=== PATIENT | male | born 1960 | race Hispanic/Latino ===

== ENCOUNTER 2023-07-05 15:46 | Inpatient (IN) | payer OTHER ==
[~2023-07-05] VITALS: Ht 165.1 cm; Wt 93.0 kg
[~2023-07-05 15:46] MED LIST: ALEVE PO; ANDROGEL TOP; CIALIS5 MG PO; CINNAMON PO; FISH OIL PO; FLONASE16 GM; JANUMET 50-1,01 EACH PO; LOSARTAN POTASS25 MG PO; MULTIVITAMINS PO
[2023-07-05 16:45] LABS: BASOPHILS % 0.2 % (0.0-1.0); EOSINOPHILS # (AUTO) 0.1 (0.0-0.4); EOSINOPHILS % 0.5 % (0.0-6.0); HEMATOCRIT 44.3 % (38.2-49.6); HEMOGLOBIN 15.6 g/dL (14.0-18.0); LYMPHOCYTES # (AUTO) 0.9 (1.0-3.2); LYMPHOCYTES % 8.6 % (18.0-39.1); MEAN CORPUSCULAR HEMOGLOBIN 29.4 pg (28-32); MEAN CORPUSCULAR HGB CONC 35.2 g/dL (31-35); MEAN CORPUSCULAR VOLUME 83.6 fL (81-99); MONOCYTES # (AUTO) 0.7 (0.2-0.8); MONOCYTES % 6.9 % (4.4-11.3); NEUTROPHILS # (AUTO) 8.6 (2.1-6.9); NEUTROPHILS % 83.5 % (38.7-80.0); PLATELET COUNT 179 x10e3/uL (140-360); RED CELL DISTRIBUTION WIDTH 13.5 % (11.7-14.4); WHITE BLOOD COUNT 10.26 x10e3/uL (4.8-10.8)
[2023-07-05 16:48] LABS: INR 0.97; PROTHROMBIN TIME 13.6 seconds (11.9-14.5)
[2023-07-05 16:49] LABS: PARTIAL THROMBOPLASTIN TIME 36.8 seconds (23.8-35.5)
[2023-07-05 16:58] LABS: ALBUMIN 4.4 g/dL (3.5-5.0); ALBUMIN/GLOBULIN RATIO 1.5 (0.8-2.0); ANION GAP 16.6 mmol/L (8-16); BILIRUBIN,TOTAL 1.1 mg/dL (0.2-1.2); CALCIUM 9.1 mg/dL (8.4-10.2); CREATININE, SERUM 0.75 mg/dL (0.72-1.25); MAGNESIUM 1.7 MG/DL (1.3-2.1); POTASSIUM 3.6 mmol/L (3.5-5.1); TOTAL PROTEIN 7.3 g/dL (6.5-8.1)
[2023-07-05 17:36] LABS: TROPONIN I 0.308 ng/mL (0-0.300)
[2023-07-05] MEDS ORDERED: ASPIRIN 81 MG CHEW TAB ONE ×2 (17:44→18:27)
[2023-07-05] MEDS: ASPIRIN 81 MG CHEW TAB PO ONE (17:45)
[2023-07-05] MEDS ORDERED: ONDANSETRON HCL INJ 2MG/ML 2ML 2 MG/ML VIAL IV PRN (18:00)
[2023-07-05] MEDS ORDERED: Morphine 2mg Syringe 2 MG/ML SYR IV PRN (18:00)
[2023-07-05] MEDS ORDERED: Morphine 2mg Syringe 2 MG/ML SYR ONE (18:25)
[2023-07-05] MEDS ORDERED: SODIUM CHLORIDE 0.9% 1000ML 1,000 ML ONE (18:27)
[2023-07-05] MEDS ORDERED: ENOXAPARIN SODIUM INJ 100 MG/ML SYR SC ONE (18:27)
[2023-07-05] MEDS ORDERED: METOPROLOL TARTRATE 25 MG TAB ONE (18:27)
[2023-07-05] MEDS ORDERED: CLOPIDOGREL BISULFATE 75 MG TAB ONE (18:27)
[2023-07-05] MEDS ORDERED: ONDANSETRON HCL INJ 2MG/ML 2ML 2 MG/ML VIAL ONE (18:27)
[2023-07-05] MEDS ORDERED: FAMOTIDINE 20 MG/2 ML VIAL IV ONE (18:28)
[2023-07-05] MEDS: METOPROLOL TARTRATE 25 MG TAB PO ONE (18:36)
[2023-07-05] MEDS: CLOPIDOGREL BISULFATE 75 MG TAB PO ONE (18:36)
[2023-07-05] MEDS: ASPIRIN 81 MG CHEW TAB PO STA (18:36)
[2023-07-05] MEDS: FAMOTIDINE 20 MG/2 ML VIAL IV SCH (18:37)
[2023-07-05] MEDS: ONDANSETRON HCL INJ 2MG/ML 2ML 2 MG/ML VIAL IV STA (18:37)
[2023-07-05] MEDS: ENOXAPARIN SODIUM INJ 100 MG/ML SYR SC ONE (18:37)
[2023-07-05] MEDS: SODIUM CHLORIDE 0.9% 1000ML 1,000 ML IV SCH (18:37)
[2023-07-05] MEDS: Morphine 2mg Syringe 2 MG/ML SYR IV STA (18:37)
[2023-07-05 19:07] VITALS: PULSE 95; RESP 16; O2SAT 100
[2023-07-05] MEDS ORDERED: SODIUM CHLORIDE 0.9% 1000ML 1,000 ML IV SCH (19:45)
[2023-07-05 20:45] VITALS: BP 120/83; PULSE 84; RESP 15; TEMP 100.3; O2SAT 98
[2023-07-05 21:01] VITALS: BP 120/83; PULSE 84; RESP 15; TEMP 100.3; O2SAT 98
[2023-07-05] MEDS: CRESTOR 10MG PO SCH (22:01)
[2023-07-05] MEDS: METOPROLOL TARTRATE 25 MG TAB PO SCH (22:02)
[2023-07-05] MEDS ORDERED: DEXTROSE 50% SYRINGE 50 ML IV PRN (22:45)
[2023-07-05] MEDS ORDERED: FLUTICASONE PROPIONATE NASAL SPRAY NS SCH (22:45)
[2023-07-05 23:30] VITALS: BP 102/72; PULSE 78; RESP 18; TEMP 98.6; O2SAT 98
[2023-07-05 23:45] VITALS: BP 99/67; PULSE 75; RESP 19; TEMP 98.7; O2SAT 99
[2023-07-06] VITALS (15 sets, daily range): BP systolic 91–110; BP diastolic 54–74; PULSE 62–78; RESP 13–22; TEMP 98–98.7; O2SAT 96–100
[2023-07-06] LABS: TROPONIN I 0.295 ng/mL (0-0.300)
[2023-07-06 06:18] LABS: BASOPHILS % 0.6 % (0.0-1.0); EOSINOPHILS # (AUTO) 0.1 (0.0-0.4); EOSINOPHILS % 1.7 % (0.0-6.0); HEMOGLOBIN 15.2 g/dL (14.0-18.0); LYMPHOCYTES # (AUTO) 1.2 (1.0-3.2); LYMPHOCYTES % 23.2 % (18.0-39.1); MEAN CORPUSCULAR HEMOGLOBIN 29.6 pg (28-32); MEAN CORPUSCULAR HGB CONC 34.5 g/dL (31-35); MEAN CORPUSCULAR VOLUME 85.8 fL (81-99); MONOCYTES # (AUTO) 0.7 (0.2-0.8); MONOCYTES % 12.7 % (4.4-11.3); NEUTROPHILS # (AUTO) 3.3 (2.1-6.9); NEUTROPHILS % 61.2 % (38.7-80.0); PLATELET COUNT 180 x10e3/uL (140-360); RED BLOOD COUNT 5.13 x10e6/uL (4.3-5.7); RED CELL DISTRIBUTION WIDTH 13.8 % (11.7-14.4); WHITE BLOOD COUNT 5.34 x10e3/uL (4.8-10.8)
[2023-07-06 06:38] LABS: ALBUMIN 3.8 g/dL (3.5-5.0); ALBUMIN/GLOBULIN RATIO 1.3 (0.8-2.0); ANION GAP 14.1 mmol/L (8-16); BILIRUBIN,TOTAL 1.3 mg/dL (0.2-1.2); CHOL/HDL RATIO 2.8 (3.9-4.7); CREATININE, SERUM 0.81 mg/dL (0.72-1.25); POTASSIUM 4.1 mmol/L (3.5-5.1); TOTAL PROTEIN 6.7 g/dL (6.5-8.1)
[2023-07-06 07:13] LABS: THYROID STIMULATING HORMONE 2.751 uIU/mL (0.350-4.940); TROPONIN I 0.205 ng/mL (0-0.300)
[2023-07-06] MEDS: INSULIN REGULAR, HUMAN 100 UNIT/1 ML SQ SCH (07:14)
[2023-07-06] MEDS: ICOSAPENT ETHYL 1 GM CAPSULE PO SCH (08:00)
[2023-07-06] MEDS: LOSARTAN POTASSIUM 25 MG TAB PO SCH (08:07)
[2023-07-06] MEDS: CLOPIDOGREL BISULFATE 75 MG TAB PO SCH (08:07)
[2023-07-06] MEDS: ASPIRIN 81 MG ENTERIC COATED PO SCH (08:08)
[2023-07-06] MEDS ORDERED: LIDOCAINE HCL 2% LOCAL 20 ML VIAL ONE ×2 (08:38→13:20)
[2023-07-06] MEDS ORDERED: IOPAMIDOL 370 MG/ML 100 ML INFUS..BTL INJ ONE ×3 (08:38→13:20)
[2023-07-06] MEDS ORDERED: VERAPAMIL HCL 2.5 MG/ML 2 ML VIAL ONE ×2 (08:38→13:20)
[2023-07-06] MEDS ORDERED: HEPARIN SOD (PORCINE) 1000 UNIT/ML 30ML ONE ×2 (08:38→13:20)
[2023-07-06] MEDS ORDERED: HEPARIN SOD/SOD CHLORIDE 2,000 ML ONE (08:38)
[2023-07-06] MEDS ORDERED: NITROGLYCERIN/D5W 200 MCG/ML 250 ML ONE (08:39)
[2023-07-06] MEDS ORDERED: SODIUM CHLORIDE 0.9% 1000ML 1,000 ML ONE (08:39)
[2023-07-06] MEDS ORDERED: MIDAZOLAM HCL 2 MG/2 ML VIAL ONE ×3 (08:41→13:20)
[2023-07-06] MEDS ORDERED: FENTANYL CITRATE/PF 100MCG/2 ML INJ ONE ×2 (08:41→13:20)
[2023-07-06] MEDS ORDERED: BIVALRIUDIN 250 MG/VIAL VIAL IV ONE ×2 (09:16→13:20)
[2023-07-06] MEDS ORDERED: PRASUGREL 10 MG TAB ONE ×2 (10:02→13:20)
[2023-07-06] MEDS: SODIUM CHLORIDE 0.9% 1000ML 1,000 ML IV SCH (10:48)
[2023-07-06] MEDS ORDERED: HEPARIN ONE (13:20)
[2023-07-06] MEDS ORDERED: Sodium Chloride 0.9% 50ML Bag ONE (13:20)
[2023-07-06] MEDS ORDERED: SODIUM CHLORIDE 0.9% 1000 ML BAG ONE ×3 (13:20→14:24)
[2023-07-06] MEDS ORDERED: NITROGLYCERIN/D5W 200 MCG/ML 50 MG/250 ML BTL ONE (13:20)
[2023-07-06] MEDS ORDERED: SODIUM CHLORIDE ONE (13:20)
[2023-07-06] MEDS ORDERED: METOPROLOL TARTRATE 25 MG TAB ONE ×4 (13:53→21:36)
[2023-07-06] MEDS ORDERED: ONDANSETRON HCL INJ 2MG/ML 2ML 2 MG/ML VIAL ONE (13:53)
[2023-07-06] MEDS ORDERED: FAMOTIDINE 20 MG/2 ML VIAL IV ONE ×4 (13:53→17:12)
[2023-07-06] MEDS ORDERED: Morphine 2mg Syringe 2 MG/ML SYR ONE (13:53)
[2023-07-06] MEDS ORDERED: ENOXAPARIN SODIUM INJ 100 MG/ML SYR SC ONE (13:53)
[2023-07-06] MEDS ORDERED: CLOPIDOGREL BISULFATE 75 MG TAB ONE ×2 (13:53→14:24)
[2023-07-06] MEDS ORDERED: ASPIRIN 81 MG CHEW TAB ONE (13:53)
[2023-07-06] MEDS ORDERED: CRESTOR 10MG PO ONE ×3 (14:24→21:36)
[2023-07-06] MEDS ORDERED: LOSARTAN POTASSIUM 25 MG TAB ONE (14:24)
[2023-07-06] MEDS ORDERED: ASPIRIN 81 MG ENTERIC COATED PO ONE (14:24)
[2023-07-06] MEDS ORDERED: ICOSAPENT ETHYL 1 GM CAPSULE PO ONE ×4 (17:00→17:39)
[2023-07-07] VITALS (11 sets, daily range): BP systolic 94–131; BP diastolic 56–89; PULSE 62–79; RESP 11–21; TEMP 98.2–98.5; O2SAT 96–100
[2023-07-07] MEDS ORDERED: SODIUM CHLORIDE 0.9% 1000ML 1,000 ML ONE (02:57)
[2023-07-07] MEDS: NITROGLYCERIN 0.4 MG SUBL SL PRN (03:59)
[2023-07-07] MEDS ORDERED: SODIUM CHLORIDE 0.9% 1000 ML BAG ONE (04:00)
[2023-07-07] MEDS ORDERED: ICOSAPENT ETHYL 1 GM CAPSULE PO ONE ×4 (04:00→08:38)
[2023-07-07] MEDS ORDERED: NITROGLYCERIN 0.4 MG SUBL ONE ×2 (04:00)
[2023-07-07] MEDS ORDERED: PRASUGREL 10 MG TAB ONE ×2 (04:00→10:00)
[2023-07-07] MEDS ORDERED: FAMOTIDINE 20 MG/2 ML VIAL IV ONE ×2 (04:00→06:07)
[2023-07-07] MEDS ORDERED: METOPROLOL TARTRATE 25 MG TAB ONE ×3 (04:00→09:59)
[2023-07-07] MEDS ORDERED: ASPIRIN 81 MG ENTERIC COATED PO ONE ×2 (04:00→09:59)
[2023-07-07 06:33] LABS: BASOPHILS % 0.3 % (0.0-1.0); EOSINOPHILS # (AUTO) 0.1 (0.0-0.4); EOSINOPHILS % 1.8 % (0.0-6.0); HEMATOCRIT 38.9 % (38.2-49.6); HEMOGLOBIN 12.7 g/dL (14.0-18.0); LYMPHOCYTES # (AUTO) 1.4 (1.0-3.2); LYMPHOCYTES % 19.5 % (18.0-39.1); MEAN CORPUSCULAR HGB CONC 32.6 g/dL (31-35); MEAN CORPUSCULAR VOLUME 88.8 fL (81-99); MONOCYTES # (AUTO) 1.1 (0.2-0.8); MONOCYTES % 14.6 % (4.4-11.3); NEUTROPHILS # (AUTO) 4.6 (2.1-6.9); NEUTROPHILS % 63.4 % (38.7-80.0); PLATELET COUNT 150 x10e3/uL (140-360); RED BLOOD COUNT 4.38 x10e6/uL (4.3-5.7); RED CELL DISTRIBUTION WIDTH 13.5 % (11.7-14.4); WHITE BLOOD COUNT 7.18 x10e3/uL (4.8-10.8)
[2023-07-07 07:07] LABS: ANION GAP 12.8 mmol/L (8-16); CALCIUM 8.2 mg/dL (8.4-10.2); CREATININE, SERUM 0.65 mg/dL (0.72-1.25); POTASSIUM 3.8 mmol/L (3.5-5.1)
[2023-07-07] MEDS: PRASUGREL 10 MG TAB PO SCH (09:59)
[2023-07-07] MEDS ORDERED: ASPIRIN EC81 MG PO (10:35)
[2023-07-07] MEDS ORDERED: ATORVASTATIN CA20 MG PO (10:35)
[2023-07-07] MEDS ORDERED: EFFIENT10 MG PO (10:35)
[2023-07-07] MEDS ORDERED: LOPRESSOR25 MG PO (10:35)
[2023-07-08] MEDS ORDERED: LEVALBUTEROL HCL SOLN NEBU 0.63 MG/3 ML NEB ONE (15:24)
== END 2023-07-07 12:00 | disposition home or self-care (01) | DRG 322 ==
LOC: ER 16:24 → ERHOLD 18:05 → ICU 19:40
PROVIDERS: ADMIT Internal Medicine; ATTEND Internal Medicine
PROC: 027034Z Dilation of Coronary Artery, One Artery with Drug-eluting Intraluminal Device, Percutaneous Approach (ICD-10-PCS; principal; 2023-07-06)
PROC: 02703DZ Dilation of Coronary Artery, One Artery with Intraluminal Device, Percutaneous Approach (ICD-10-PCS; 2023-07-06)
PROC: 0270346 Dilation of Coronary Artery, One Artery, Bifurcation, with Drug-eluting Intraluminal Device, Percutaneous Approach (ICD-10-PCS; 2023-07-06)
PROC: 4A023N7 Measurement of Cardiac Sampling and Pressure, Left Heart, Percutaneous Approach (ICD-10-PCS; 2023-07-06)
PROC: B2151ZZ Fluoroscopy of Left Heart using Low Osmolar Contrast (ICD-10-PCS; 2023-07-06)
PROC: B2111ZZ Fluoroscopy of Multiple Coronary Arteries using Low Osmolar Contrast (ICD-10-PCS; 2023-07-06)
DX: I21.4 Non-ST elevation (NSTEMI) myocardial infarction (principal); I10 Essential (primary) hypertension; E11.9 Type 2 diabetes mellitus without complications; E78.00 Pure hypercholesterolemia, unspecified; G47.30 Sleep apnea, unspecified; Z99.81 Dependence on supplemental oxygen; Z79.82 Long term (current) use of aspirin; Z79.85 Long-term (current) use of injectable non-insulin antidiabetic drugs; Z79.84 Long term (current) use of oral hypoglycemic drugs; Z79.899 Other long term (current) drug therapy; Z11.52 Encounter for screening for COVID-19; Z88.8 Allergy status to other drugs, medicaments and biological substances; Z86.16 Personal history of COVID-19; Z83.3 Family history of diabetes mellitus; Z82.49 Family history of ischemic heart disease and other diseases of the circulatory system
CPT/HCPCS: 36415; 71045; 76937; 80048; 80053; 80061; 82550; 82948; 83690; 83735; 84443; 84484; 85025; 85379; 85610; 85730; 92928; 93005; 93306; 93458; 94799; 99152; 99153; 99284; C1725; C1760; C1769; C1874; C1887; J0583; J1644; J1650; J2001; J2250; J2270; J2405; J7030; Q9967; U0002